=== PATIENT | female | born 1955 | race Caucasian/White ===

== ENCOUNTER 2022-07-07 13:19 | Outpatient (CLI) | payer MEDICARE, BC | END 2022-07-07 13:20 | disposition home or self-care (01) | LOC: BICMAMMO 13:19 | PROVIDERS: ATTEND Obstetrics & Gynecology | DX: R92.8 Other abnormal and inconclusive findings on diagnostic imaging of breast (principal) | CPT/HCPCS: 77066; G0279 ==